=== PATIENT | male | born 1955 | race African-American/Black ===

== ENCOUNTER 2017-10-06 09:46 | Emergency (ER) | payer SELFPAY ==
[~2017-10-06] VITALS: Ht 188 cm; Wt 88.6 kg
[~2017-10-06 09:46] MED LIST: CIPRO 500MG TA500 MG PO; DUO-KAPS1 CAP PO; FLAGYL500 MG PO; FOLIC ACID 11 MG/TA1 PO; NO HOME MEDICATIONS; PREDNISONE10 MG PO; THIAMINE 1100 MG/TAB PO
[2017-10-06 09:52] VITALS: TEMP 98.3
[2017-10-06 10:25] VITALS: BP 129/88; PULSE 97
== END 2017-10-06 10:27 | disposition home or self-care (01) ==
LOC: COL.ER 09:46
DX: H61.23 Impacted cerumen, bilateral (principal)

== ENCOUNTER 2018-05-30 18:12 | Emergency (ER) | payer OTHER ==
[~2018-05-30] VITALS: Ht 190.5 cm; Wt 88.6 kg
[2018-05-30 18:14] VITALS: BP 141/97; TEMP 99.2
[2018-05-30 19:08] LABS: BASO # 0.1 (0.0-0.2); BASO % 0.6 % (0.0-2.0); EOS # 0.1 (0.0-0.7); EOS % 0.8 % (0-4.0); GRAN # 5.1 (1.4-6.5); GRAN % 46.9 % (42.2-75.2); HEMOGLOBIN 11.9 g/dl (13.5-18.0); LYMPH # 4.9 (1.2-3.4); LYMPH % 44.9 % (20.0-51.0); MEAN CELL VOLUME 94 fl (80.0-100.0); MEAN CORPUSCULAR HEMOGLOBIN 32 pg (27.0-31.0); MEAN CORPUSCULAR HGB CONC 33 g/dl (33.0-37.0); MEAN PLATELET VOLUME 8.5 fl (7.4-10.4); MONO # 0.7 (0.1-0.6); MONO % 6.3 % (1.7-9.3); PLATELET COUNT 258 K/mm3 (130-400); RED BLOOD COUNT 3.78 M/mm3 (4.20-5.60); REDCELL DISTRIBUTION WIDTH-CV 14.5 % (11.5-14.5)
[2018-05-30 19:09] LABS: HEMATOCRIT 35.6 % (42.0-52.0)
[2018-05-30 19:16] LABS: INR 1.1 (0.8-3.0)
[2018-05-30 19:23] LABS: ALBUMIN 3.6 gm/dL (3.5-5.0); BILIRUBIN,TOTAL 0.3 mg/dL (0.0-1.0); C-REACTIVE PROTEIN 2.9 mg/dL (0.0-0.9); CALCIUM 8.7 mg/dL (8.4-10.2); CREATININE, serum 0.65 mg/dL (0.66-1.25); POTASSIUM 3.5 mmol/L (3.4-5.0); TOTAL PROTEIN 7.1 gm/dL (6.4-8.2)
[2018-05-30 20:31] LABS: COLLECTION METHOD CLEAN CATCH
[2018-05-30 20:42] LABS: PH 8 (5-8); SQUAMOUS EPITHELIAL 0-2 /hpf; URINE APPEARANCE Clear; URINE BACTERIA None Seen /hpf; URINE BILIRUBIN Negative (NEGATIVE); URINE BLOOD Negative (NEGATIVE); URINE COLOR Straw; URINE GLUCOSE Negative (NEGATIVE); URINE KETONE Negative (NEGATIVE); URINE LEUKOCYTE ESTERASE Negative (NEGATIVE); URINE NITRATE Negative (NEGATIVE); URINE PROTEIN(semi-quant) Negative (NEGATIVE); URINE UROBILINOGEN Negative (NEGATIVE)
[2018-05-30] MEDS ORDERED: LOVENOX 8080 MG/0.8 SQ (20:59)
[2018-05-30] MEDS ORDERED: XARELTO STARTER20 MG PO (21:13)
[2018-05-30 21:49] VITALS: PULSE 99
== END 2018-05-30 22:02 | disposition home or self-care (01) ==
LOC: COL.ER 18:12
PROVIDERS: Physician Assistant
DX: I82.4Z2 Acute embolism and thrombosis of unspecified deep veins of left distal lower extremity (principal)

== ENCOUNTER 2018-06-01 13:39 | Emergency (ER) | payer OTHER ==
[~2018-06-01] VITALS: Ht 190.5 cm; Wt 88.6 kg
[~2018-06-01 13:39] MED LIST changes: +LOVENOX 8080 MG/0.8 SQ; +XARELTO STARTER20 MG PO
[2018-06-01 14:27] VITALS: BP 141/93; PULSE 99; TEMP 98.9
== END 2018-06-01 14:41 | disposition home or self-care (01) ==
LOC: COL.ER 13:39
DX: R04.0 Epistaxis (principal)

== ENCOUNTER 2018-11-07 18:18 | Emergency (ER) | payer OTHER ==
[~2018-11-07] VITALS: Ht 190.5 cm; Wt 88.6 kg
[2018-11-07 18:19] VITALS: TEMP 98.4
[2018-11-07 19:41] LABS: BASO % 0.5 % (0.0-2.0); EOS % 0.2 % (0-4.0); GRAN # 2.2 (1.4-6.5); GRAN % 52.7 % (42.2-75.2); HEMATOCRIT 40.4 % (42.0-52.0); HEMOGLOBIN 13.7 g/dl (13.5-18.0); LYMPH # 1.7 (1.2-3.4); LYMPH % 39.3 % (20.0-51.0); MEAN CELL VOLUME 88 fl (80.0-100.0); MEAN CORPUSCULAR HEMOGLOBIN 30 pg (27.0-31.0); MEAN CORPUSCULAR HGB CONC 34 g/dl (33.0-37.0); MONO # 0.3 (0.1-0.6); MONO % 7.1 % (1.7-9.3); PLATELET COUNT 134 K/mm3 (130-400); RED BLOOD COUNT 4.59 M/mm3 (4.20-5.60); REDCELL DISTRIBUTION WIDTH-CV 17.2 % (11.5-14.5)
[2018-11-07 19:59] LABS: ALBUMIN 4.1 gm/dL (3.5-5.0); BILIRUBIN,TOTAL 0.6 mg/dL (0.0-1.0); C-REACTIVE PROTEIN 0.6 mg/dL (0.0-0.9); CALCIUM 8.6 mg/dL (8.4-10.2); CREATININE, serum 0.68 (0.66-1.25); POTASSIUM 3.9 mmol/L (3.4-5.0); TOTAL PROTEIN 7.7 gm/dL (6.4-8.2)
[2018-11-07] MEDS ORDERED: NORCO 325 MG-51 TAB PO (21:21)
[2018-11-07 21:23] VITALS: BP 159/98; PULSE 86
== END 2018-11-07 21:33 | disposition home or self-care (01) ==
LOC: COL.ER 18:18
PROVIDERS: Emergency Medicine
DX: M54.5 Low back pain (principal); F10.129 Alcohol abuse with intoxication, unspecified; Z86.718 Personal history of other venous thrombosis and embolism; Y90.8 Blood alcohol level of 240 mg/100 ml or more
CPT/HCPCS: J1885; J2060; J3010; J7030

== ENCOUNTER 2018-11-08 09:25 | Emergency (ER) | payer OTHER ==
[~2018-11-08 09:25] MED LIST changes: +NORCO 325 MG-51 TAB PO
== END 2018-11-08 10:17 | disposition left against medical advice (07) ==
LOC: COL.ER 09:25
DX: Z72.89 Other problems related to lifestyle (principal)

== ENCOUNTER 2018-12-03 15:16 | Emergency (ER) | payer OTHER ==
[~2018-12-03] VITALS: Ht 190.5 cm; Wt 88.6 kg
[2018-12-03 15:17] VITALS: TEMP 97.9
[2018-12-03 16:04] LABS: BASO % 0.3 % (0.0-2.0); EOS # 0.1 (0.0-0.7); EOS % 0.5 % (0-4.0); GRAN # 6.1 (1.4-6.5); GRAN % 67.3 % (42.2-75.2); HEMATOCRIT 44.1 % (42.0-52.0); HEMOGLOBIN 14.5 g/dl (13.5-18.0); LYMPH # 2.5 (1.2-3.4); MEAN CELL VOLUME 92 fl (80.0-100.0); MEAN CORPUSCULAR HEMOGLOBIN 30 pg (27.0-31.0); MEAN CORPUSCULAR HGB CONC 33 g/dl (33.0-37.0); MEAN PLATELET VOLUME 10.2 fl (7.4-10.4); MONO # 0.4 (0.1-0.6); MONO % 4.4 % (1.7-9.3); PLATELET COUNT 154 K/mm3 (130-400); RED BLOOD COUNT 4.82 M/mm3 (4.20-5.60); REDCELL DISTRIBUTION WIDTH-CV 16.4 % (11.5-14.5)
[2018-12-03 16:08] LABS: PROTHROMBIN TIME 11.1 SECONDS (9.7-12.8)
[2018-12-03 16:18] LABS: ALANINE AMINOTRANSFERASE 23 U/L (21-72); ALBUMIN 4.3 gm/dL (3.5-5.0); ALKALINE PHOSPHATASE 106 U/L (50-136); ANION GAP 30 mmol/L (7-16); AST,SGOT 92 U/L (15-37); BLOOD UREA NITROGEN 4 mg/dL (9-20); CALCIUM 9.3 mg/dL (8.4-10.2); CHLORIDE 101 mmol/L (98-107); CREATININE, serum 0.82 (0.66-1.25); GLUCOSE 181 mg/dL (74-106); LIPASE 116 U/L (23-300); POTASSIUM 3.6 mmol/L (3.4-5.0); SODIUM 142 mmol/L (137-145)
[2018-12-03 16:19] LABS: CARBON DIOXIDE 11 mmol/L (22-30)
[2018-12-03 16:33] LABS: TROPONIN-I < 0.012 ng/mL (0.000-0.035)
[2018-12-03 16:44] LABS: ARTERIAL BLD GAS O2 SATURATION 94.9 % (92-100); ARTERIAL BLD GAS TCO2 CT 20.3; ARTERIAL BLOOD GAS BASE EXCESS -4.1 (-2-2); ARTERIAL BLOOD GAS HCO3 19.4 meq/L (22-26); ARTERIAL BLOOD GAS PCO2 31.2 mmHg (35-45); ARTERIAL BLOOD GAS PO2 80.9 mmHg (80-100); ARTERIAL BLOOD GAS pH 7.41 (7.35-7.45)
[2018-12-03 16:50] LABS: MAGNESIUM 1.7 mg/dL (1.6-2.3)
[2018-12-03 16:51] LABS: ALCOHOL(ethanol),MEDICAL < 10 mg/dL
[2018-12-03 16:57] LABS: COLLECTION METHOD CLEAN CATCH
[2018-12-03 17:11] LABS: MUCOUS Present /lpf; PH 5 (5-8); SQUAMOUS EPITHELIAL 0-2 /hpf; URINE APPEARANCE Clear; URINE BACTERIA None Seen /hpf; URINE BILIRUBIN Negative (NEGATIVE); URINE BLOOD 1+ (NEGATIVE); URINE COLOR Yellow; URINE GLUCOSE Negative (NEGATIVE); URINE KETONE Trace (NEGATIVE); URINE LEUKOCYTE ESTERASE Negative (NEGATIVE); URINE NITRATE Negative (NEGATIVE); URINE PROTEIN(semi-quant) 2+ (NEGATIVE); URINE RBC 0-2 /hpf; URINE UROBILINOGEN Negative (NEGATIVE)
[2018-12-03 20:15] VITALS: BP 128/96; PULSE 96
== END 2018-12-03 20:20 | disposition short-term general hospital (02) ==
LOC: COL.ER 15:16
PROVIDERS: Emergency Medicine
DX: E87.2 Acidosis (principal); I48.2 Chronic atrial fibrillation; F10.239 Alcohol dependence with withdrawal, unspecified; Y90.0 Blood alcohol level of less than 20 mg/100 ml; Z87.891 Personal history of nicotine dependence
CPT/HCPCS: J2060; J3411; J3475; J7030; J7121